=== PATIENT | male | born 1960 | race Caucasian/White ===

== ENCOUNTER 2016-08-27 13:53 | Day surgery (SDC) | payer BC ==
[2016-08-26 09:52] VITALS: BMI 25.8
[~2016-08-27 13:53] MED LIST: DEXAMETHASONE SOD PHOSPHATE 10 MG/ML 1 ML VIAL IV ONE; FAMOTIDINE 20 MG/2 ML VIAL IV PRN; HYDROmorphone 1 MG/ML 1 ML SYRINGE IVP PRN; LIDOCAINE 1% 20 ML VIAL (10MG/ML) FOR IV START INTRADERMA PRN; MIDAZOLAM 2 MG/2 ML VIAL IV PRN; ONDANSETRON 4 MG/2 ML VIAL IVP ONE; SCOPOLAMINE 1.5MG/72HR PATCH TRANSDERM ONE
[2016-08-27] MEDS: LACTATED RINGERS 1,000 ML IV SCH ×2 (14:08→14:10)
[2016-08-27] MEDS ORDERED: BUPIVACAIN-EPI 0.25%-1:200,000 30 ML VIAL SQ ONE ×3 (16:24→16:58)
[2016-08-27] MEDS ORDERED: MIDAZOLAM 2 MG/2 ML VIAL ONE (16:31)
[2016-08-27] MEDS ORDERED: ePHEDrine 50 MG/ML 1 ML AMP ONE (16:31)
[2016-08-27] MEDS ORDERED: fentaNYL (PF) 50 MCG/ML 2 ML AMP ONE (16:31)
[2016-08-27] MEDS ORDERED: HYDROmorphone (PF) 1 MG/ML ONE (16:31)
[2016-08-27] MEDS ORDERED: HEPARIN SODIUM,PORCINE 5,000 UNIT/ML 1 ML VIAL ONE (16:31)
[2016-08-27] MEDS ORDERED: GLYCOPYRROLATE 0.2 MG/ML 2 ML VIAL ONE (16:31)
[2016-08-27] MEDS ORDERED: PROPOFOL 10 MG/ML 20 ML VIAL IV ONE (16:31)
[2016-08-27] MEDS ORDERED: ROCURONIUM BROMIDE 10 MG/ML 10 ML VIAL IV ONE (16:31)
[2016-08-27] MEDS ORDERED: NALOXONE 0.4 MG/ML 1 ML VIAL ONE (16:31)
[2016-08-27] MEDS ORDERED: KETOROLAC 30 MG/ML 1 ML VIAL ONE (16:31)
[2016-08-27] MEDS ORDERED: NEOSTIGMINE 1 MG/ML 10 ML VIAL ONE (16:31)
[2016-08-27] MEDS ORDERED: LIDOCAINE 1% INJ 10MG/ML (20 ML MDV) ONE (16:31)
[2016-08-27] MEDS ORDERED: SUCCINYLCHOLINE CHLORIDE 100 MG/5 ML SYR IV ONE (16:31)
[2016-08-27] MEDS ORDERED: SODIUM CHLORIDE 0.9% 50 ML with CLINDAMYCIN 900 MG IV ONE ×2 (16:38)
[2016-08-27 19:12] VITALS: TEMP 97.9
[2016-08-27 19:49] VITALS: RESP 16
[2016-08-27] MEDS ORDERED: HYDROcodone/APAP 5-325MG 1 EACH TAB PO ONE (19:49)
[2016-08-27 20:48] VITALS: BP 134/83; PULSE 60
--- NOTE | 2016-08-27 20:59 | P.OP ---
Date of Procedure: 08/27/16 Preoperative Diagnosis: Symptomatic left inguinal hernia and umbilical hernia Postoperative Diagnosis: Left indirect inguinal hernia Right direct and indirect inguinal hernia Umbilical hernia Procedure(s) Performed: Robot-assisted laparoscopic inguinal hernia repair with mesh Implants: 10 x 15 Bard mesh that was not trimmed Anesthesia: KWAN Surgeon: Savannah Reyes Pathology: none sent Condition: stable Disposition: PACU Description of Procedure: Informed consent was obtained patient and then The patient was brought to the operating room and placed in supine position. General anesthesia with endotracheal intubation was performed as per anesthesia team. A stuart catheter was inserted under sterile aseptic precautions. Chlorhexidine was used to prep the skin followed by application of sterile drapes . He was placed in the lithotomy positionA timeout was performed to verify correct patient, correct procedure and correct side. Patient was confirmed to receive perioperative IV antibiotics, subcutaneous heparin 5000 units and bilateral SCDs were placed. The left upper quadrant point was identified and a stab incision was made. Veress needle was introduced and placement was confirmed with the help of the drop test. The abdomen was then insufflated to 15 mmHg. Once that was done 5 mm port was introduced into the left upper quadrant using the Optiview technique after which a 12 mm port was placed in the supraumbilical position and a 8 mm port in the right lower quadrant and then after that the left-sided 5 mm port was replaced with a robot 8 mm port under direct vision. The robot was then docked with the central camera port and the 2 side working ports. The 30 degree of scope was introduced and the abdomen through the 12 mm port site. Cardiere grasper for the left hand and scissor in the right hand was introduced in the abdominal cavity after which the median umbilical fold was retracted laterally towards the opposite side a small incision was made at the junction of the umbilical fold and the peritoneum and carried all the way laterally thus creating a small plane in the preperitoneal space. The flap was developed further with the help of blunt dissection using gentle stroking maneuvers all the way down to Jeremiah ligament medially and laterally we went inferior exposing the vessels inferiorly. The vas was identified and there was an indirect inguinal hernia. Indirect hernia sac was dissected off the cord and reduced completely. Once that was done the inferior flap was enlarged and some old made in it. Attention was turned to the opposite side. Peritoneal flap was created in a similar fashion and while dissecting was a direct hernia as well as an indirect hernia. Both were re reduced with ease. Once appropriate amount of area had been exposed for placement of the mesh 10 x 15 Pro compliance field technician mesh was introduced and placed in both right and left sides. Once that was done the peritoneal flaps were closed with running V lock sutures. All the needles were then removed and accounted for. At this time the procedure was completed. The robotic instruments were removed and the robot was undocked. Using the laparoscope 12 mm port site was closed using a Efrain Angel under direct vision using 0 PDS thus closing the umbilical hernia fascial edges. Once that was done the abdomen was desufflated and the skin was closed with the help of 4-0 Monocryl. Dermabond was applied. Patient tolerated the procedure well. There were no complications. The Stuart catheter was removed and the patient extubated taken to recovery room in stable condition.
== END 2016-08-27 21:17 | disposition home or self-care (01) ==
LOC: OR 13:53
PROVIDERS: ATTEND Surgery
DX: K40.20 Bilateral inguinal hernia, without obstruction or gangrene, not specified as recurrent (principal); K42.9 Umbilical hernia without obstruction or gangrene; K21.9 Gastro-esophageal reflux disease without esophagitis; Z88.1 Allergy status to other antibiotic agents; Z88.0 Allergy status to penicillin
CPT/HCPCS: 49650; 49652; S2900

== ENCOUNTER 2021-02-05 18:27 | Emergency (ER) | payer BC ==
[2021-02-05 18:57] VITALS: TEMP 98
[2021-02-05] MEDS ORDERED: KETOROLAC 15 MG/ML 1 ML VIAL IM STA (19:20)
[2021-02-05] MEDS ORDERED: SODIUM CHLORIDE 0.9% 1,000 ML IV STA (19:20)
[2021-02-05 19:46] LABS: Appearance,Urine Clear (Clear); Bilirubin,Urine Negative (Negative); Blood,Urine Negative (Negative); Color,Urine Yellow; Glucose,Urine (UA) Negative (Negative); Ketones,Urine 3+ (Negative); Leukocyte Esterase,Urine Negative (Negative); Nitrite,Urine Negative (Negative); PH, Urine 5.5 (5.0-8.0); Protein,Urine Negative (Negative); Specific Gravity,Urine 1.027 (1.001-1.035); Urobilinogen,Urine <2.0 mg/dL (<2.0)
[2021-02-05 19:47] LABS: Basophils # (A) 0.1 k/uL (0-0.2); Basophils % (A) 1 %; Eosinophils # (A) 1.2 k/uL (0-0.7); Eosinophils % (A) 14 %; HGB 14.5 gm/dL (13.0-17.5); Lymphocytes # (A) 1.9 k/uL (1.0-4.8); Lymphocytes % (A) 21 %; MCH 29.4 pg (25.0-35.0); MCHC 33.8 g/dL (31.0-37.0); Mean Platelet Volume 6.6; Monocytes # (A) 0.6 k/uL (0-1.0); Monocytes % (A) 6 %; Neutrophils # (A) 5.1 k/uL (1.3-7.7); Neutrophils % (A) 57 %; Platelet Count 222 k/uL (150-450); RBC 4.95 m/uL (4.30-5.90); RDW 14.3 % (11.5-15.5)
[2021-02-05 19:58] LABS: ALT 20 U/L (4-49); AST 22 U/L (17-59); African American GFR (CKD) >90 (>60 ml/min/1.73 sqM); Albumin 4.2 g/dL (3.5-5.0); Alkaline Phosphatase 58 U/L (38-126); Anion Gap 9 mmol/L; Blood Urea Nitrogen 17 mg/dL (9-20); Calcium 9.4 mg/dL (8.4-10.2); Carbon Dioxide 27 mmol/L (22-30); Chloride 102 mmol/L (98-107); Glucose 112 mg/dL (74-99); Non-African American GFR(CKD) >90 (>60 ml/min/1.73 sqM); Potassium 4.2 mmol/L (3.5-5.1); Sodium 138 mmol/L (137-145); Total Bilirubin 0.4 mg/dL (0.2-1.3); Total Protein 6.4 g/dL (6.3-8.2)
[2021-02-05] MEDS ORDERED: HYDROmorphone 0.5 MG/0.5 ML SYRINGE IVP STA (20:23)
[2021-02-05] MEDS ORDERED: ORPHENADRINE 30 MG/ML 2 ML VIAL IM STA (20:23)
--- NOTE | 2021-02-05 21:22 | ED ---
Back Pain HPI - General Chief Complaint: Back Pain/Injury Stated Complaint: back pain Source: patient, family, RN notes reviewed Limitations: no limitations - History of Present Illness Initial Comments: 60-year-old white male presents to the emergency room with right-sided back pain that he woke up with today. He noticed a little bit of tightness last night he also noticed some tightness in his neck. Patient denies any injury no heavy lifting. She denies any fevers or dysuria. No chest pain nausea vomiting or diarrhea. He has a history of osteoarthritis, hypercholesterolemia and bilateral hernia repair. States the pain 8 out of 10. at bedside states that she's had this type of pain before and was a kidney stone patient has no history of kidney stones. MD Complaint: back pain -: days(s) (1) Similar Symptoms Previously: No Severity scale (1-10): 8 Quality: aching Consistency: constant Improves With: none Worsens With: none Associated Symptoms: denies other symptoms - Related Data Previous Rx's Medication Instructions Recorded HYDROcodone/APAP 5-325MG [[place] 1 tab PO Q4HR PRN #25 tab 08/27/16 5-325] Cyclobenzaprine [Flexeril] 5 mg PO TID PRN #15 tablet 02/05/21 Allergies Allergy/AdvReac Type Severity Reaction Status Date / Time ampicillin Allergy Dyspnea, Verified 02/05/21 18:56 RASH Penicillins Allergy Dyspnea, Verified 02/05/21 18:56 RASH Review of Systems ROS Statement: Those systems with pertinent positive or pertinent negative responses have been documented in the HPI. ROS Other: All systems not noted in ROS Statement are negative. Past Medical History Past Medical History: Hyperlipidemia, Osteoarthritis (OA) Additional Past Medical History / Comment(s): MINOR OA. BILAT INGUINAL HERNIA History of Any Multi-Drug Resistant Organisms: None Reported Past Surgical History: Hernia Repair Additional Past Surgical History / Comment(s): COLONOSCOPY Past Anesthesia/Blood Transfusion Reactions: Motion Sickness Past Psychological History: No Psychological Hx Reported Smoking Status: Never smoker Past Alcohol Use History: Occasional Past Drug Use History: None Reported - Past Family History Mother Family Medical History: Cancer General Exam Limitations: no limitations General appearance: alert, in no apparent distress Head exam: Present: atraumatic, normocephalic, normal inspection Eye exam: Present: normal appearance, PERRL, EOMI. Absent: scleral icterus, conjunctival injection, periorbital swelling ENT exam: Present: normal exam, normal oropharynx, mucous membranes moist Neck exam: Present: normal inspection, full ROM. Absent: tenderness, meningismus, lymphadenopathy, thyromegaly Respiratory exam: Present: normal lung sounds bilaterally. Absent: respiratory distress, wheezes, rales, rhonchi, stridor, chest wall tenderness, accessory mus radha use, decreased breath sounds, prolonged expiratory Cardiovascular Exam: Present: regular rate, normal rhythm, normal heart sounds. Absent: systolic murmur, diastolic murmur, rubs, gallop, clicks GI/Abdominal exam: Present: soft, normal bowel sounds. Absent: distended, tenderness, guarding, rebound, rigid Extremities exam: Present: normal inspection, full ROM, normal capillary refill. Absent: tenderness, pedal edema, joint swelling, calf tenderness Back exam: Present: normal inspection, full ROM, other (Negative straight leg test bilaterally). Absent: tenderness, CVA tenderness (R), CVA tenderness (L), muscle spasm, paraspinal tenderness, vertebral tenderness, rash noted Neurological exam: Present: alert, oriented X3, CN II-XII intact Psychiatric exam: Present: normal affect, normal mood Skin exam: Present: warm, dry, intact, normal color. Absent: rash, cyanosis, diaphoretic, erythema, petechiae, pallor, mottled Course Vital Signs 02/05/21 18:55 Temperature 98 F Pulse Rate 69 Respiratory 16 Rate Blood Pressure 147/93 O2 Sat by Pulse 98 Oximetry Medical Decision Making - Medical Decision Making WBC count was 9.0, platelet creatinine 17 and 0.76 respectively, urine shows 3+ ketones no blood no nitrites no leukocyte esterase. This is consistent with dehydration and muscle cramping. Patient was given Norflex with Toradol and a liter of fluid with relief. He'll be directed to follow up with his primary care doctor as needed. He'll be prescribed Flexeril as needed and Motrin [id number]. Discussed with Dr. Vicente was agreeable with this plan of care. - Lab Data Result diagrams: 02/05/21 19:31 02/05/21 19:31 Lab Results 02/05/21 02/05/21 02/05/21 Range/Units 19:31 19:31 19:31 WBC 9.0 (3.8-10.6) k/uL RBC 4.95 (4.30-5.90) m/uL Hgb 14.5 (13.0-17.5) gm/dL Hct 43.0 (39.0-53.0) % MCV 87.0 (80.0-100.0) fL MCH 29.4 (25.0-35.0) pg MCHC 33.8 (31.0-37.0) g/dL RDW 14.3 (11.5-15.5) % Plt Count 222 (150-450) k/uL MPV 6.6 Neutrophils % 57 % Lymphocytes % 21 % Monocytes % 6 % Eosinophils % 14 % Basophils % 1 % Neutrophils # 5.1 (1.3-7.7) k/uL Lymphocytes # 1.9 (1.0-4.8) k/uL Monocytes # 0.6 (0-1.0) k/uL Eosinophils # 1.2 H (0-0.7) k/uL Basophils # 0.1 (0-0.2) k/uL Sodium 138 (137-145) mmol/L Potassium 4.2 (3.5-5.1) mmol/L Chloride 102 (98-107) mmol/L Carbon Dioxide 27 (22-30) mmol/L Anion Gap 9 mmol/L BUN 17 (9-20) mg/dL Creatinine 0.76 (0.66-1.25) mg/dL Est GFR (CKD-EPI)AfAm >90 (>60 ml/min/1.73 sqM) Est GFR (CKD-EPI)NonAf >90 (>60 ml/min/1.73 sqM) Glucose 112 H (74-99) mg/dL Calcium 9.4 (8.4-10.2) mg/dL Total Bilirubin 0.4 (0.2-1.3) mg/dL AST 22 (17-59) U/L ALT 20 (4-49) U/L Alkaline Phosphatase 58 (38-126) U/L Total Protein 6.4 (6.3-8.2) g/dL Albumin 4.2 (3.5-5.0) g/dL Urine Color Yellow Urine Appearance Clear (Clear) Urine pH 5.5 (5.0-8.0) Ur Specific [place] 1.027 (1.001-1.035) Urine Protein Negative (Negative) Urine Glucose (UA) Negative (Negative) Urine Ketones 3+ H (Negative) Urine Blood Negative (Negative) Urine Nitrite Negative (Negative) Urine Bilirubin Negative (Negative) Urine Urobilinogen <2.0 (<2.0) mg/dL Ur Leukocyte Esterase Negative (Negative) Disposition Clinical Impression: Dehydration, Muscle strain Disposition: HOME SELF-CARE Condition: Good Instructions (If sedation given, give patient instructions): Acute Low Back Pain (ED) Additional Instructions: Take Motrin [id number] as prescribed and take Flexeril as needed for muscle spasms. Increase fluid intake. Follow-up with the primary care doctor in 1 week. Prescriptions: Cyclobenzaprine [Flexeril] 5 mg PO TID PRN #15 tablet PRN Reason: Muscle Spasm Is patient prescribed a controlled substance at d/c from ED?: No Referrals: Yudy Renae DO [Primary Care Provider] - 1-2 days Time of Disposition: 21:25
[2021-02-05 21:43] VITALS: BP 126/82; PULSE 55; RESP 18
== END 2021-02-05 21:43 | disposition home or self-care (01) ==
LOC: EC 18:27
DX: S29.012A Strain of muscle and tendon of back wall of thorax, initial encounter (principal); E86.0 Dehydration; Z88.0 Allergy status to penicillin; X58.XXXA Exposure to other specified factors, initial encounter
CPT/HCPCS: 99283; 96374; 96372; 96360; 36415; 80053; 85025; 81003; J2360; J1885; J1170

== ENCOUNTER 2021-02-06 19:44 | Emergency (ER) | payer BC ==
[2021-02-06 19:58] VITALS: BP 147/92; PULSE 63; TEMP 98
[2021-02-06] MEDS ORDERED: LIDOCAINE 5% PATCH TOPICAL STA (20:18)
[2021-02-06] MEDS ORDERED: HYDROmorphone 1 MG/ML 1 ML SYRINGE IM STA (20:19)
[2021-02-06] MEDS ORDERED: ACET/COD 300 MG/30 MG STARTER PACK 6 TAB BTL PO STA (20:19)
--- NOTE | 2021-02-06 20:24 | ED ---
Back Pain HPI - General Chief Complaint: Back Pain/Injury Stated Complaint: Back Pain Time Seen by Provider: 02/06/21 20:00 Source: patient - History of Present Illness Initial Comments: 60-year-old male presents to the emergency department with a chief complaint of back pain. Patient states he was evaluated yesterday in emergency department but is symptoms return. 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 States his work is very labor intensive and he does have occasional back pain but nothing this significant. States mostly the pain is located in the right lumbosacral region with no radiation of pain. States the pain is exacerbated with a twisting motion whenever he is laying flat. Denies any saddle anesthesia, urinary retention with bowel or overflow incontinence. Denies any fevers and chills. Denies any obstructive or infectious urinary symptoms. Denies any abdominal pain. - Related Data Previous Rx's Medication Instructions Recorded HYDROcodone/APAP 5-325MG [[place] 1 tab PO Q4HR PRN #25 tab 08/27/16 5-325] Cyclobenzaprine [Flexeril] 5 mg PO TID PRN #15 tablet 02/05/21 Allergies Allergy/AdvReac Type Severity Reaction Status Date / Time ampicillin Allergy Dyspnea, Verified 02/06/21 19:59 RASH Penicillins Allergy Dyspnea, Verified 02/06/21 19:59 RASH Review of Systems ROS Statement: Those systems with pertinent positive or pertinent negative responses have been documented in the HPI. ROS Other: All systems not noted in ROS Statement are negative. Past Medical History Past Medical History: Hyperlipidemia, Osteoarthritis (OA) Additional Past Medical History / Comment(s): MINOR OA. BILAT INGUINAL HERNIA History of Any Multi-Drug Resistant Organisms: None Reported Past Surgical History: Hernia Repair Additional Past Surgical History / Comment(s): COLONOSCOPY Past Anesthesia/Blood Transfusion Reactions: Motion Sickness Past Psychological History: No Psychological Hx Reported Smoking Status: Never smoker Past Alcohol Use History: Occasional Past Drug Use History: None Reported - Past Family History Mother Family Medical History: Cancer General Exam Limitations: no limitations General appearance: alert, in no apparent distress Head exam: Present: atraumatic, normocephalic, normal inspection Eye exam: Present: normal appearance, PERRL, EOMI Pupils: Present: normal accommodation ENT exam: Present: normal exam, normal oropharynx, mucous membranes moist Neck exam: Present: normal inspection, full ROM. Absent: tenderness, lymphadenopathy Respiratory exam: Present: normal lung sounds bilaterally. Absent: respiratory distress, wheezes, rales, rhonchi, stridor Cardiovascular Exam: Present: regular rate, normal rhythm, normal heart sounds. Absent: systolic murmur, diastolic murmur GI/Abdominal exam: Present: soft. Absent: distended, tenderness, guarding, rebound Extremities exam: Present: normal inspection, full ROM, normal capillary refill. Absent: tenderness Back exam: Present: normal inspection, full ROM, tenderness, CVA tenderness (R), paraspinal tenderness (Right paraspinal tenderness in the lumbosacral spine). Absent: CVA tenderness (L) Neurological exam: Present: alert, oriented X3 Psychiatric exam: Present: normal affect, normal mood Skin exam: Present: warm, dry, intact, normal color Course Vital Signs 02/06/21 02/06/21 19:55 21:55 Temperature 98 F Pulse Rate 63 Respiratory 18 16 Rate Blood Pressure 147/92 O2 Sat by Pulse 99 Oximetry Medical Decision Making - Medical Decision Making 60-year-old male presents to the emergency department with a chief complaint of back pain. On physical examination, right-sided paraspinal tenderness in the lumbosacral region. No concern for cauda equina. Patient was given symptomatic relief. X-ray of the lumbar spine reveals mild to moderate degenerative disc disease in the lumbar spine. There is also a large amount of stool in the colon. Patient will be discharged with Tylenol 3 starter pack. Also advised to take laxative in order to promote bowel movement. Strict return parameters were thoroughly discussed the patient is an attending agreeable. Case discussed with Dr. Snell. Disposition Clinical Impression: Strain of lumbar region Disposition: HOME SELF-CARE Condition: Stable Instructions (If sedation given, give patient instructions): Acute Low Back Pain (ED) Additional Instructions: Follow with network operations specialist. Return to emergency department if symptoms worsen. Is patient prescribed a controlled substance at d/c from ED?: No Referrals: Yudy Renae DO [Primary Care Provider] - 1-2 days Ralph Whyte MD [STAFF PHYSICIAN] - 1-2 days Time of Disposition: 21:52
--- NOTE | 2021-02-06 21:38 | XR ---
EXAMINATION TYPE: XR lumbar spine 2 or 3V DATE OF EXAM: 02/06/2021 COMPARISON: NONE HISTORY: 60-year-old male with back pain TECHNIQUE: Frontal and lateral radiographs of the lumbar spine FINDINGS: There are 5 nonrib-bearing lumbar-type vertebral bodies. There is slight straightening of lumbar curvature. Vertebral body heights are normal. Mild to moderate narrowing of the intervertebral spaces at L3-4, L4-5 and L5-S1. Facet joint arthropathy changes and from T12 through S1. Large amount of stool noted in the colon. IMPRESSION: 1. No acute osseous abnormality. 2. Bcsh-[id number] degenerative changes in the lumbar spine. 3. Large amount of stool noted in the colon.
[2021-02-06 22:00] VITALS: RESP 16
== END 2021-02-06 21:55 | disposition home or self-care (01) ==
LOC: EC 19:44
DX: S39.012A Strain of muscle, fascia and tendon of lower back, initial encounter (principal); Z88.0 Allergy status to penicillin; X58.XXXA Exposure to other specified factors, initial encounter
CPT/HCPCS: 99283; 96372; 72100; J1170

== ENCOUNTER 2022-04-27 13:16 | Observation (INO) | payer BC ==
[2022-04-27] MEDS ORDERED: NITROGLYCERIN OINT 1 INCH/GM PACKET TOPICAL STA (13:40)
[2022-04-27] MEDS ORDERED: ASPIRIN 81 MG PO STA (13:40)
--- NOTE | 2022-04-27 13:43 | ED ---
Chest Pain HPI - General Chief Complaint: Chest Pain Stated Complaint: chest pain Time Seen by Provider: 04/27/22 13:34 Source: patient Mode of arrival: ambulatory Limitations: no limitations - History of Present Illness Initial Comments: This 61-year-old male presents complaining of some left-sided chest pain. He states that it started yesterday when he was bending over a car. It is described as a dull achy type sensation that radiates into his left shoulder. It is slightly worse with deep inspiration. He states that it seems somewhat worse when he is sitting down at rest and feels somewhat better when he is walking. He denies any previous similar incidents. He has never had any cardiac issues in the past. He's never had a stress test or a heart catheterization. There is no leg pain or swelling. He denies any history of DVT or PE. He denies any chest injuries. The pain is not reproducible with movements. He denies any other complaints or modifying factors. He denies any coughing or problems with fevers. He states that the pain is somewhat worsened when he takes a deep breath. - Related Data Home Medications Medication Instructions Recorded Confirmed No Known Home Medications 04/27/22 04/27/22 Allergies Allergy/AdvReac Type Severity Reaction Status Date / Time ampicillin Allergy Dyspnea, Verified 04/27/22 15:28 RASH Penicillins Allergy Dyspnea, Verified 04/27/22 15:28 RASH Review of Systems ROS Statement: Those systems with pertinent positive or pertinent negative responses have been documented in the HPI. ROS Other: All systems not noted in ROS Statement are negative. Past Medical History Past Medical History: Hyperlipidemia, Osteoarthritis (OA) Additional Past Medical History / Comment(s): MINOR OA. BILAT INGUINAL HERNIA History of Any Multi-Drug Resistant Organisms: None Reported Past Surgical History: Hernia Repair Additional Past Surgical History / Comment(s): COLONOSCOPY Past Anesthesia/Blood Transfusion Reactions: Motion Sickness Past Psychological History: No Psychological Hx Reported Smoking Status: Never smoker Past Alcohol Use History: Occasional Past Drug Use History: None Reported - Past Family History Mother Family Medical History: Cancer General Exam - General Exam Comments Initial Comments: GENERAL: The patient is well nourished and well hydrated. VITAL SIGNS: Heart rate, blood pressure, respiratory rate reviewed as recorded in nurse's notes. EYES: Pupils are round and reactive. Extraocular movements are intact. No conjunctival / lid redness or swelling. ENT: No external evidence of injury, swelling, or ecchymosis. Airway is patent. Throat is clear. NECK: Nontender. No swelling or evidence of injury. No subcutaneous emphysema. Trachea is midline. No thyroid mass. HEART: Regular rate and rhythm. Good peripheral pulses. LUNGS/CHEST: Breath sounds clear and equal bilaterally. No rales, rhonchi, or wheezes. No ecchymosis, subcutaneous emphysema, or tenderness. ABDOMEN: Abdomen soft without tenderness. No palpable masses or organomegaly. No peritoneal signs. No abdominal wall swelling or ecchymosis. EXTREMITIES: No extremity tenderness. Normal muscle tone and function. No thoracolumbar tenderness. NEUROLOGIC: Sensation is grossly intact. Cranial nerve exam reveals face is symmetrical, tongue is midline, speech is clear. SKIN: No abrasions or ecchymosis is noted. No induration or masses noted. PSYCHIATRIC: Alert and oriented. Appropriate behavior and judgment. Limitations: no limitations Course Vital Signs 04/27/22 04/27/22 04/27/22 13:20 14:39 15:49 Temperature 99.3 F Pulse Rate 86 82 68 Respiratory 16 18 18 Rate Blood Pressure 133/91 119/83 112/74 O2 Sat by Pulse 96 94 L 95 Oximetry Chest Pain MDM - MDM The patient was seen and examined. All diagnostics are reviewed. His EKG shows a normal sinus rhythm. There is some mild artifact noted. There is no acute ST-T wave changes identified. The TN intervals 129, QS duration is 85, and the QTc interval 393. The patient received aspirin as well as Nitropaste. On recheck, he is still having the pain. He receives Toradol IV as well. He has a chest x-ray which shows either pneumonia, atelectasis, or effusion noted in the left lower lobe. The patient may have a degree of pneumonia and is therefore started on Rocephin and Zithromax intravenously. The laboratory is all essentially within normal limits with a negative d-dimer. His symptomatology sounds more cardiac in nature. It is felt as though he benefit from admission for further workup in this regard. Patient is agreeable. Case will be discussed with internal medicine in the near future. Disposition Clinical Impression: Chest pain, Unstable angina, Pneumonia Disposition: ADMITTED IP TO THIS [facility] Condition: Fair Time of Disposition: 16:00 Decision Date: 04/27/22 Decision Time: 16:00
[2022-04-27 13:54] LABS: Basophils # (A) 0.1 k/uL (0-0.2); Basophils % (A) 1 %; Eosinophils # (A) 0.1 k/uL (0-0.7); Eosinophils % (A) 1 %; HCT 44.3 % (39.0-53.0); HGB 14.9 gm/dL (13.0-17.5); Lymphocytes # (A) 1.2 k/uL (1.0-4.8); Lymphocytes % (A) 14 %; MCH 29.9 pg (25.0-35.0); MCHC 33.6 g/dL (31.0-37.0); MCV 89.1 fL (80.0-100.0); Mean Platelet Volume 6.7; Monocytes # (A) 0.7 k/uL (0-1.0); Monocytes % (A) 8 %; Neutrophils # (A) 6.6 k/uL (1.3-7.7); Neutrophils % (A) 75 %; Platelet Count 234 k/uL (150-450); RBC 4.97 m/uL (4.30-5.90); RDW 14.3 % (11.5-15.5); WBC 8.7 k/uL (3.8-10.6)
[2022-04-27 14:06] LABS: ALT 20 U/L (4-49); AST 20 U/L (17-59); African American GFR (CKD) >90 (>60 ml/min/1.73 sqM); Albumin 4.7 g/dL (3.5-5.0); Alkaline Phosphatase 67 U/L (38-126); Anion Gap 11 mmol/L; Blood Urea Nitrogen 17 mg/dL (9-20); Calcium 9.6 mg/dL (8.4-10.2); Carbon Dioxide 24 mmol/L (22-30); Chloride 101 mmol/L (98-107); Glucose 123 mg/dL (74-99); Non-African American GFR(CKD) 81 (>60 ml/min/1.73 sqM); Potassium 4.2 mmol/L (3.5-5.1); Sodium 136 mmol/L (137-145); Total Bilirubin 0.7 mg/dL (0.2-1.3); Total Protein 6.9 g/dL (6.3-8.2)
[2022-04-27 14:09] LABS: INR 0.9 (<1.2); Partial Thromboplastin Time 24.6 sec (22.0-30.0); Prothrombin Time 10.2 sec (9.0-12.0)
--- NOTE | 2022-04-27 14:27 | XR ---
EXAMINATION TYPE: XR chest 2V DATE OF EXAM: 04/27/2022 COMPARISON: NONE HISTORY: Chest pain TECHNIQUE: Frontal and lateral views of the chest are obtained. FINDINGS: Patchy densities present at the left lung base. No evident pneumothorax. Cardiac mediastin al silhouette is within normal limits. Patient is rotated. Bone mineralization is normal. There is th oracic spondylosis. Lung volumes are low. IMPRESSION: Correlate for left lower lobe pneumonia versus atelectasis, difficult to exclude effusio n
[2022-04-27] MEDS ORDERED: KETOROLAC 15 MG/ML 1 ML VIAL IVP STA (15:56)
[2022-04-27] MEDS ORDERED: AZITHROMYCIN 500 MG in SODIUM CHLORIDE 0.9% 250 ML IVPB STA (15:57)
[2022-04-27] MEDS ORDERED: NITROGLYCERIN SL TABS 0.4 MG TAB SUBLINGUAL PRN (16:17)
[2022-04-27] MEDS: KETOROLAC 15 MG/ML 1 ML VIAL IVP SCH ×2 (17:17→22:28)
[2022-04-27] MEDS: NITROGLYCERIN OINT 1 INCH/GM PACKET TOPICAL SCH ×2 (18:09→23:38)
[2022-04-28] MEDS: KETOROLAC 15 MG/ML 1 ML VIAL IVP SCH ×2 (05:28→12:31)
[2022-04-28] MEDS: NITROGLYCERIN OINT 1 INCH/GM PACKET TOPICAL SCH ×2 (05:30→12:35)
[2022-04-28] MEDS ORDERED: ENOXAPARIN 40 MG/0.4 ML SYRINGE SQ SCH (09:00)
[2022-04-28] MEDS ORDERED: ASPIRIN 325 MG TAB PO SCH (09:00)
--- NOTE | 2022-04-28 09:18 | P.CRDCN ---
History of Present Illness History of present illness: This is a 61 year old male with a past medical history of family history of coronary artery disease (father had 3v CABG in his 60s). 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 We are consulted for chest pain. Patient presented to the ER with 2 day history of left sided chest discomfort. It was non-radiating, non- exertional. He states yesterday he was working on his car and did noticed a "sor e" pain left upper rib area. It was aggravated by taking a deep breath and resting. The pain improved with movement of his chest and walking. He also endorsed associated chills. Denies any fever, cough, diaphoresis, nausea, vomiting, shortness of breath. He denies any symptoms of orthopnea or PND. He denies any history of CAD, UT, Stroke, Diabetes, hypertension, dyslipidemia. He denies tobacco use. DIAGNOSTICS * EKG reveals sinus rhythm, heart rate 80, T wave inversions in lead III and aVF. No significant ST-T wave abnormalities to suggest ischemia * Telemetry tracings indicate sinus rhythm * Chest xray patchy densities present in the left lung base. * Laboratory reviewed, troponin negative 3, d-dimer negative, CBC unremarkable, Covid-19 Negative, sodium 139, potassium 4.2, BUN 17, serum creatinine 1.01 * Current home medications include none REVIEW OF SYSTEMS At the time of my exam: CONSTITUTIONAL: Denies fever. Reports chills. CARDIOVASCULAR: + chest pain worse with deep breathing on exam, shortness of breath, orthopnea, PND or palpitations. RESPIRATORY: Denies cough. GASTROINTESTINAL: Denies abdominal pain, diarrhea, constipation, nausea or vomiting. MUSCULOSKELETAL: Denies myalgias. NEUROLOGIC: Denies numbness, tingling, headache or weakness. ENDOCRINE: Denies fatigue, weight change, polydipsia or polyurina. GENITOURINARY: Denies burning, hematuria or urgency with micturation. HEMATOLOGIC: Denies history of anemia or bleeding. PHYSICAL EXAMINATION Blood pressure 105/66, heart rate 72, afebrile, saturations 94% on room air CONSTITUTIONAL: No apparent distress. HEENT: Head is normocephalic. Pupils are equal, round. Sclerae anicteric. Mucous membranes of the mouth are moist. No JVD. No carotid bruit. CHEST EXAMINATION: Lungs are clear to auscultation. There is chest wall tenderness is noted with deep breathing. HEART EXAMINATION: Regular rate and rhythm. S1, S2 heard. No murmurs, gallops or rub. ABDOMEN: Soft, nontender. Positive bowel sounds. EXTREMITIES: 2+ peripheral pulses, no lower extremity edema and no calf tenderness. SKIN: warm dry. NEUROLOGIC EXAMINATION: Patient is awake, alert and oriented x3. ASSESSMENT Chest discomfort, atypical, appears pleuritic on exam with aggravation by deep inspiration Symptoms of Chills Possible left lower lobe pneumonia Family history of coronary artery disease PLAN An acute coronary event has been ruled out with no EKG evidence of ischemia and negative cardiac enzymes. Echocardiogram obtained that revealed EF 55-60%, mild concentric LVH, mild MR, mild TR No further inpatient workup from a cardiology perspective Patient may follow up outpatient. Thank you kindly for this consultation. Nurse practitioner note has been reviewed by physician. Signing provider agrees with the documented findings, assessment, and plan of care. 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 BILAT INGUINAL HERNIA History of Any Multi-Drug Resistant Organisms: None Reported Past Surgical History: Hernia Repair Additional Past Surgical History / Comment(s): COLONOSCOPY Past Anesthesia/Blood Transfusion Reactions: Motion Sickness Past Psychological History: No Psychological Hx Reported Smoking Status: Never smoker Past Alcohol Use History: Occasional Additional Past Alcohol Use History / Comment(s): 6 PACK PER WK Past Drug Use History: None Reported - Past Family History Mother Family Medical History: Cancer Medications and Allergies Home Medications Medication Instructions Recorded Confirmed Type No Known Home Medications 04/27/22 04/27/22 History Allergies Allergy/AdvReac Type Severity Reaction Status Date / Time ampicillin Allergy Dyspnea, Verified 04/27/22 15:28 RASH Penicillins Allergy Dyspnea, Verified 04/27/22 15:28 RASH Physical Exam Vitals: Vital Signs Temp Pulse Pulse Resp BP BP Pulse Ox 04/28/22 03:02 98.8 F 59 L 15 94/57 96 04/27/22 21:16 98.3 F 65 15 99/61 95 04/27/22 19:58 77 16 108/69 99 04/27/22 19:43 95 04/27/22 18:11 61 19 105/71 98 04/27/22 17:07 66 18 105/71 96 04/27/22 15:49 68 18 112/74 95 04/27/22 14:39 82 18 119/83 94 L 04/27/22 13:20 99.3 F 86 16 133/91 96 FiO2 04/28/22 03:02 04/27/22 21:16 04/27/22 19:58 04/27/22 19:43 21 04/27/22 18:11 04/27/22 17:07 04/27/22 15:49 04/27/22 14:39 04/27/22 13:20 Intake and Output 04/27/22 04/28/22 04/28/22 22:59 06:59 14:59 Other: # Voids 2 1 Weight 79.379 kg Results 04/27/22 13:46 04/27/22 13:46 Cardiac Enzymes 04/27/22 04/27/22 04/27/22 Range/Units 13:46 13:46 16:57 AST 20 (17-59) U/L Troponin I <0.012 <0.012 (0.000-0.034) ng/mL 04/27/22 Range/Units 19:50 AST (17-59) U/L Troponin I <0.012 (0.000-0.034) ng/mL Coagulation 04/27/22 Range/Units 13:46 PT 10.2 (9.0-12.0) sec APTT 24.6 (22.0-30.0) sec CBC 04/27/22 Range/Units 13:46 WBC 8.7 (3.8-10.6) k/uL RBC 4.97 (4.30-5.90) m/uL Hgb 14.9 (13.0-17.5) gm/dL Hct 44.3 (39.0-53.0) % Plt Count 234 (150-450) k/uL Comprehensive Metabolic Panel 04/27/22 Range/Units 13:46 Sodium 136 L (137-145) mmol/L Potassium 4.2 (3.5-5.1) mmol/L Chloride 101 (98-107) mmol/L Carbon Dioxide 24 (22-30) mmol/L BUN 17 (9-20) mg/dL Creatinine 1.01 (0.66-1.25) mg/dL Glucose 123 H (74-99) mg/dL Calcium 9.6 (8.4-10.2) mg/dL AST 20 (17-59) U/L ALT 20 (4-49) U/L Alkaline Phosphatase 67 (38-126) U/L Total Protein 6.9 (6.3-8.2) g/dL Albumin 4.7 (3.5-5.0) g/dL Current Medications Generic Name Dose Route Start Last Admin Trade Name Yanni PRN Reason Stop Dose Admin Aspirin 325 mg 04/28/22 09:00 Aspirin 325 Mg Tab PO DAILY [facility] Enoxaparin Sodium 40 mg 04/28/22 09:00 Enoxaparin 40 Mg/0.4 Ml Syringe SQ DAILY [facility] Azithromycin 500 mg/ Sodium 250 mls @ 250 mls/hr 04/28/22 17:00 Chloride IVPB 05/01/22 17:01 DAILY@1700 [facility] Protocol Ceftriaxone Sodium 1 gm/ 50 mls @ 100 mls/hr 04/28/22 09:00 Sodium Chloride IVPB DAILY [facility] Protocol Ketorolac Tromethamine 15 mg 04/27/22 18:00 04/28/22 05:28 Ketorolac 15 Mg/Ml 1 Ml Vial IVP 04/30/22 16:22 15 mg Q6HR [facility] Administration Nitroglycerin 0.4 mg 04/27/22 16:17 Nitroglycerin Sl Tabs 0.4 Mg Tab SUBLINGUAL Q5M PRN Chest Pain Nitroglycerin 1 inch 04/27/22 18:00 04/28/22 05:30 Nitroglycerin Oint 1 Inch/Gm Packet TOPICAL Not Given Q6HR [facility] Intake and Output 04/27/22 04/28/22 04/28/22 22:59 06:59 14:59 Other: # Voids 2 1 Weight 79.379 kg 04/27/22 13:46 04/27/22 13:46
[2022-04-28 09:30] LABS: Chol/HDL Ratio 3.84 Ratio; LDL Cholesterol,Calculated 130.3 mg/dL (0.0-131.0)
--- NOTE | 2022-04-28 10:09 | CA ---
Transthoracic Echo Report Name: Tomasz Harris Age: 61 Gender: M : 1960 Exam Date: 04/28/2022 08:13 Exam Location: [facility] Ht (in): 68 Wt (lb): 175 Ordering Physician: Johnny Hummel DO Attending/Referring Phys: [id number], Shaheed Supervisor [employer]ing Noy Nazario, [facility] Procedure CPT: Indications: CP Cardiac Hx: Technical Quality: Fair Contrast 1: Total Dose (mL): Contrast 2: Total Dose (mL): MEASUREMENTS (Male / Female) Normal Values 2D ECHO LV Diastolic Diameter PLAX 4.2 cm 4.2 - 5.9 / 3.9 - 5.3 cm LV Systolic Diameter PLAX 2.8 cm IVS Diastolic Thickness 1.1 cm 0.6 - 1.0 / 0.6 - 0.9 cm LVPW Diastolic Thickness 1.3 cm 0.6 - 1.0 / 0.6 - 0.9 cm LV Relative Wall Thickness 0.6 RV Internal Dim ED PLAX 4.0 cm LA Volume 50.2 cm??? 18 - 58 / 22 - 52 cm??? M-MODE Aortic Root Diameter MM 3.2 cm LA Systolic Diameter MM 3.9 cm LA Ao Ratio MM 1.2 AV Cusp Separation MM 2.2 cm DOPPLER AV Peak Velocity 110.6 cm/s AV Peak Gradient 4.9 mmHg LVOT Peak Velocity 97.9 cm/s LVOT Peak Gradient 3.8 mmHg MV Area PHT 2.7 cm??? Mitral E Point Velocity 62.7 cm/s Mitral A Point Velocity 74.8 cm/s Mitral E to A Ratio 0.8 MV Deceleration Time 280.0 ms MV E' Velocity 8.1 cm/s Mitral E to MV E' Ratio 7.7 TR Peak Velocity 236.2 cm/s TR Peak Gradient 22.3 mmHg Right Ventricular Systolic Press 25.7 mmHg FINDINGS Left Ventricle Mildly increased left ventricular wall thickness. Normal left ventricular systolic function with no obvious regional wall motion abnormalities. Left ventricular ejection fraction is estimated at 55-60 %. Right Ventricle Moderate right ventricular dilatation. Right Atrium Normal right atrial size. Left Atrium Normal left atrial size. Mitral Valve Structurally normal mitral valve. No mitral stenosis. Mild mitral regurgitation. Aortic Valve Trileaflet aortic valve. No aortic valve stenosis or regurgitation. Tricuspid Valve Structurally normal tricuspid valve. Mild tricuspid regurgitation. Pulmonic Valve Structurally normal pulmonic valve. Trace pulmonic regurgitation. Pericardium No pericardial effusion. Aorta Normal size aortic root and proximal ascending aorta. CONCLUSIONS Mild concentric left ventricular hypertrophy with normal LV systolic function. Mild mitral regurgitation. Mild tricuspid regurgitation Previewed by: Dr. Elliot Osborne MD (Electronically Signed) Final Date: 28 April 2022 10:09
[2022-04-28 13:03] VITALS: BP 127/50; PULSE 68; RESP 14; TEMP 98.3
--- NOTE | 2022-04-28 15:02 | P.HPIM ---
History of Present Illness H&P Date: 04/28/22 This is a pleasant 61-year-old male who presented to the emergency department with some left-sided chest pain that was dull and achy and radiating up into his left shoulder and experiencing worsening acid reflux. Patient reports it started 1 day prior and becoming more intense and difficulty to take deep inspiration. Patient denies any recent sick contacts, shortness of breath, or cough with congestion. Patient follows with Dr. Silvestre in the outpatient setting and denies significant past medical history other than borderline high cholesterol and some mild osteoarthritis. Patient reports to never smoking does not gape or use any other drugs and occasionally drinks alcohol socially. Patient also reports he was doing some work outside and subsequently fell onto the concrete approximately 2 weeks ago with a large hematoma of his left buttock that had radiated up to his back. Patient denies any aspirin use or blood thinners. Patient is vaccinated for Covid and reports having it earlier this year with no respiratory symptoms. Chest x-ray on admission shows a correlate for left lower lobe pneumonia versus atelectasis and difficult to exclude effusion but no evident pneumothorax. Cardiology was consulted and echo was ordered and patient was evaluated by cardiology recommending outpatient follow- up as needed. An echo showed an EF of 55-60 with some mild regurgitation noted otherwise normal LV systolic function. Patient was started on empiric antibiotics in the form of ceftriaxone and Zithromax in the ER. Patient with no fevers and WBC was normal. EKG showed sinus bradycardia. Review Of Systems: Constitutional: No fever, no chills, no night sweats. No weight change. No weakness, fatigue or lethargy. No daytime sleepiness. EENT: No headache. No blurred vision or double vision, no loss of vision. No loss of Hearing, no ringing in the ears, no dizziness. No nasal drainage or congestion. No epistaxis. No sore throat. Lungs: Reports some mild shortness of breath with deep inspiration, no cough, no sputum production. No wheezing. Cardiovascular: Reports epigastric chest pain, no lower extremity edema. No palpitations. No paroxysmal nocturnal dyspnea. No orthopnea. No lightheadedness or dizziness. No syncopal episodes. Abdominal: No abdominal pain. No nausea, vomiting. No diarrhea. No constipation. No bloody or tarry stools.. No loss of appetite. Genitourinary: No dysuria, increased frequency, urgency. No urinary retention. Musculoskeletal: No myalgias. No muscle weakness, no gait dysfunction, no frequent falls. No back pain. No neck pain. Integumentary: No wounds, no lesions. No rash or pruritus. Reports left buttock bruising. Status post fall 2 weeks ago No change in hair or nails. Neurologic: No aphasia. No facial droop. No change in mentation. No head injury. No headache. No paralysis. No paresthesia. Psychiatric: No depression. No anxiety. No mood swings. Endocrine: No abnormal blood sugars. No weight change. No excessive sweating or thirst. No cold intolerance. PHYSICAL EXAMINATION: GENERAL: The patient is alert and oriented x4, Well developed, well nourished. HEENT: Pupils are round and equally reacting to light. EOMI. no scleral icterus. No conjunctival pallor. Normocephalic, atraumatic. No pharyngeal erythema. No thyromegaly. CARDIOVASCULAR: S1 and S2 muffled PULMONARY: diminished breath sounds bilaterally otherwise clear to auscultation with no wheezing or rhonchi noted. ABDOMEN: soft. Nontender on exam. non-distended, normoactive bowel sounds. No palpable organomegaly. MUSCULOSKELETAL: No joint swelling or deformity. EXTREMITIES: No cyanosis, clubbing, or pedal edema. NEUROLOGICAL: Gross neurological examination did not reveal any focal deficits. SKIN: No rashes. Assessment: Chest discomfort, atypical, ACS ruled out Pleuritic chest pain on deep inspiration Possible left lower lobe pneumonia, although suspicion is low and treated empirically Hyperlipidemia Recent fall with no LOC onto the left buttock with a large bruised buttock GI prophylaxis DVT prophylaxis Full code Plan: Recommend to continue with current medications and management and cardiology has evaluated the patient and underwent 2-D echo showing LV systolic function is normal with an EF of 55-60% with some mild concentric LVH and mild mitral and tricuspid regurgitation present recommending outpatient follow-up as needed. Serial troponins have been negative 3. Patient is borderline h ypercholesterolemia and reports he has been working on his diet and does follow with Dr. Silvestre for this. Patient was initiated on empiric ceftriaxone and Zithromax for questionable possible left lower lobe infiltrate versus atelectasis. We'll provide incentive spirometer and continue with empiric antibiotics for 5 days to complete the course. Strongly recommend follow-up with primary care provider and possible chest x-ray in the next few weeks. Patient is maintaining oxygen saturation on room air above 95% and encouraged to continue using incentive spirometer at least 10 times every hour while awake. D-dimer normal and WBC normal and patient is afebrile. Patient will likely discharge later this afternoon. The impression and plan of care has been dictated by Tete Francis, nurse practitioner as directed. Dr. Vaishali WHITFIELD I have performed a history and examination and MDM of this patient, discussed the same with the dictator, and agree with the dictator's assessment and plan as written ,documented as a scribe. Based on total visit time, I have performed more than 50% of the visit. Any additional findings or plans will be noted. 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 BILAT INGUINAL HERNIA History of Any Multi-Drug Resistant Organisms: None Reported Past Surgical History: Hernia Repair Additional Past Surgical History / Comment(s): COLONOSCOPY Past Anesthesia/Blood Transfusion Reactions: Motion Sickness Past Psychological History: No Psychological Hx Reported Smoking Status: Never smoker Past Alcohol Use History: Occasional Additional Past Alcohol Use History / Comment(s): 6 PACK PER WK Past Drug Use History: None Reported - Past Family History Mother Family Medical History: Cancer Medications and Allergies Home Medications Medication Instructions Recorded Confirmed Type Azithromycin [Zithromax] 500 mg PO DAILY 5 Days #5 tab 04/28/22 Rx Ibuprofen [Motrin] 600 mg PO Q6HR PRN #60 tab 04/28/22 Rx cefUROXime axetiL [Ceftin] 500 mg PO BID 5 Days #10 tab 04/28/22 Rx Allergies Allergy/AdvReac Type Severity Reaction Status Date / Time ampicillin Allergy Dyspnea, Verified 04/27/22 15:28 RASH Penicillins Allergy Dyspnea, Verified 04/27/22 15:28 RASH Physical Exam Vitals: Vital Signs Temp Pulse Pulse Resp BP BP Pulse Ox 04/28/22 07:40 59 L 16 04/28/22 07:00 98.4 F 72 14 105/66 94 L 04/28/22 03:02 98.8 F 59 L 15 94/57 96 04/27/22 21:16 98.3 F 65 15 99/61 95 04/27/22 19:58 77 16 108/69 99 04/27/22 19:43 95 04/27/22 18:11 61 19 105/71 98 04/27/22 17:07 66 18 105/71 96 04/27/22 15:49 68 18 112/74 95 04/27/22 14:39 82 18 119/83 94 L 04/27/22 13:20 99.3 F 86 16 133/91 96 FiO2 04/28/22 07:40 04/28/22 07:00 04/28/22 03:02 04/27/22 21:16 04/27/22 19:58 04/27/22 19:43 21 04/27/22 18:11 04/27/22 17:07 04/27/22 15:49 04/27/22 14:39 04/27/22 13:20 Intake and Output 04/27/22 04/28/22 04/28/22 22:59 06:59 14:59 Other: # Voids 2 1 Weight 79.379 kg Results CBC & Chem 7: 04/27/22 13:46 04/27/22 13:46 Labs: Abnormal Lab Results - Last 24 Hours (Table) 04/27/22 Range/Units 13:46 Sodium 136 L (137-145) mmol/L Glucose 123 H (74-99) mg/dL Thrombosis Risk Factor Assmnt - Choose All That Apply Any of the Below Risk Factors Present?: Yes Each Factor Represents 1 point: Age 41-60 years, Obesity (BMI >25) Other Risk Factors: No Other congenital or acquired thrombophilia - If yes, enter type in comment: No Thrombosis Risk Factor Assessment Total Risk Factor Score: 2 Thrombosis Risk Factor Assessment Level: Low Risk
[2022-04-28] MEDS ORDERED: AZITHROMYCIN 500 MG in SODIUM CHLORIDE 0.9% 250 ML IVPB SCH (17:00)
--- NOTE | 2022-04-29 16:03 | P.DS ---
Providers Date of admission: 04/27/22 16:20 Expected date of discharge: 04/28/22 Attending physician: Luis Daniel Ulloa MD Consults: 04/27/22 16:18 Consult Physician Urgent Consulting Provider: Elliot Osborne Consult Reason/Comments: cp Do you want consulting provider notified?: Yes Primary care physician: Yudy Silvestre Hospital Course: Final diagnosis Chest discomfort, atypical, ACS ruled out Pleuritic chest pain on deep inspiration Possible left lower lobe pneumonia, although suspicion is low and treated empirically, most likely atelectasis Hyperlipidemia Recent mechanical fall with no LOC onto the left buttock with a large contusion GI prophylaxis DVT prophylaxis Full code Discharge disposition Patient is being discharged in a stable condition with guarded prognosis to home. Patient will follow-up with Dr. Silvestre in the outpatient setting upon discharge. Patient is to continue with oral Ceftin and Zithromax for the next few days to complete the course. Total time taken is greater than 35 minutes. Hospital course This is a 61-year-old male who was recently admitted with left-sided chest pain on deep inspiration and was being closely monitored. Patient was evaluated by cardiology recommending mostly musculoskeletal in questioning left lower lobe pneumonia versus atelectasis. Patient was cleared by cardiology and 2-D echo was done showing some mild mitral regurgitation with an EF of 55-60%. Borderline hyperlipidemia and patient is aware and has been monitoring and trying diet control. Patient was given an incentive spirometer and encouraged to use at least 10 times every hour while awake. After review of chest x-ray appears to be atelectasis and recommend outpatient follow-up with Dr. Silvestre after antibiotic course with possible repeat chest x-ray in the next 2-3 weeks. Patient will continue oral Ceftin 500 mg twice daily along with Zithromax 500 mg daily for the next 5 days to complete the course. Also recently had a fall with a large left buttock contusion on the left side and was concerned for possible blood clot in the lungs. D-dimer was negative. Patient is afebrile and denies shortness of breath. Currently no reports of chest pain, shortness of breath, or palpitations. Patient is afebrile. No reports of nausea or vomiting and patient is tolerating diet. Patient will be discharged home today. Physical exam: Gen: This is a 61-year-old male awake, alert and oriented 3, well-developed, well-nourished. HEENT: Head is atraumatic, normocephalic. Pupils equal, round. Sclerae is anicteric. NECK: Supple. No JVD. No lymphadenopathy. No thyromegaly. LUNGS: Clear to auscultation. No wheezes or rhonchi. No intercostal retractions. HEART: Regular rate and rhythm. No murmur. ABDOMEN: Soft. Bowel sounds are present. No masses. No tenderness. EXTREMITIES: No pedal edema. No calf tenderness. NEUROLOGICAL: Patient is awake, alert and oriented x3. Cranial nerves 2 through 12 are grossly intact. Please refer to medication reconciliation sheet for a list of medications. The impression and plan of care has been dictated by Tete Francis, Nurse Practitioner as directed. Dr. Vaishali MD I have performed a history and examination and MDM of this patient, discussed the same with the dictator, and agree with the dictator's assessment and plan as written ,documented as a scribe. Based on total visit time, I have performed more than 50% of the visit. Patient Condition at Discharge: Fair Plan - Discharge Summary Discharge Rx Participant: No New Discharge Prescriptions: New Ibuprofen [Motrin] 600 mg PO Q6HR PRN #60 tab PRN Reason: Pain cefUROXime axetiL [Ceftin] 500 mg PO BID 5 Days #10 tab Azithromycin [Zithromax] 500 mg PO DAILY 5 Days #5 tab Discharge Medication List Azithromycin [Zithromax] 500 mg PO DAILY 5 Days #5 tab 04/28/22 [Rx] Ibuprofen [Motrin] 600 mg PO Q6HR PRN #60 tab 04/28/22 [Rx] cefUROXime axetiL [Ceftin] 500 mg PO BID 5 Days #10 tab 04/28/22 [Rx] Follow up Appointment(s)/Referral(s): Yudy Silvestre DO [Primary Care Provider] - 1 Week Elliot Osborne MD [STAFF PHYSICIAN] - 3 Weeks (office will call with follow up appointment) Patient Instructions/Handouts: Chest Pain (DC) Activity/Diet/Wound Care/Special Instructions: Activity Limited until follow-up Follow-up with primary care provider on discharge Continue taking medications as prescribed Follow heart healthy low-cholesterol diet Continue with incentive spirometer use at least 10 times every hour while awake Recommend possible repeat chest x-ray in the next few weeks with primary care follow-up Discharge Disposition: HOME SELF-CARE
== END 2022-04-28 15:51 | disposition home or self-care (01) ==
LOC: EC 13:16 → 6NMEDSUR 16:20
PROVIDERS: ADMIT Internal Medicine; ATTEND Internal Medicine
DX: R07.89 Other chest pain (principal); R07.81 Pleurodynia; E78.5 Hyperlipidemia, unspecified; K21.9 Gastro-esophageal reflux disease without esophagitis; R91.8 Other nonspecific abnormal finding of lung field; R68.83 Chills (without fever); I08.1 Rheumatic disorders of both mitral and tricuspid valves; R00.1 Bradycardia, unspecified; M19.072 Primary osteoarthritis, left ankle and foot; M19.071 Primary osteoarthritis, right ankle and foot; S30.0XXA Contusion of lower back and pelvis, initial encounter; W19.XXXA Unspecified fall, initial encounter; E66.9 Obesity, unspecified; Z68.26 Body mass index [BMI] 26.0-26.9, adult; Z20.822 Contact with and (suspected) exposure to COVID-19; Z88.0 Allergy status to penicillin; Z86.16 Personal history of COVID-19; Z98.890 Other specified postprocedural states; Z80.9 Family history of malignant neoplasm, unspecified; Z82.49 Family history of ischemic heart disease and other diseases of the circulatory system
CPT/HCPCS: 96376 ×2; 96372; 96365; 96367; 96375; 99285; 36415; 94760; 93005; 93306; 85379; 80061; 80053; 83735; 84484; 85025; 85610; 85730; 87040; 87635; 71046; G0378 ×2; J0456; J1650; J0696 ×2; J1885 ×2